=== PATIENT | female | born 1990 | race Caucasian/White ===

== ENCOUNTER 2022-04-01 09:11 | Outpatient (CLI) | payer OTHER | END 2022-04-01 09:56 | disposition home or self-care (01) | LOC: NST 09:11 | PROVIDERS: ATTEND Obstetrics & Gynecology | DX: Z34.83 Encounter for supervision of other normal pregnancy, third trimester (principal) ==

== ENCOUNTER 2022-05-01 15:00 | Inpatient (IN) | payer OTHER ==
[~2022-05-01] VITALS: Ht 154.9 cm; Wt 72.6 kg
[2022-05-31] MEDS ORDERED: PRENATAL TABLE1 EAC4 PO (22:47)
[2022-05-31] MEDS ORDERED: MELATONIN10 MG (22:47)
== END 2022-06-03 10:44 | disposition home or self-care (01) | DRG 807 ==
LOC: OB/GYN 05-30 15:00 → LDR 05-31 22:35 → OB/GYN 06-01 18:37
PROVIDERS: ADMIT Obstetrics & Gynecology; ATTEND Obstetrics & Gynecology
PROC: 10E0XZZ Delivery of Products of Conception, External Approach (ICD-10-PCS; principal; 2022-05-31)
PROC: 0HQ9XZZ Repair Perineum Skin, External Approach (ICD-10-PCS; 2022-05-31)
DX: O70.0 First degree perineal laceration during delivery (principal); Z37.0 Single live birth; Z3A.40 40 weeks gestation of pregnancy; Z20.822 Contact with and (suspected) exposure to COVID-19

== ENCOUNTER 2022-05-08 13:05 | Outpatient (CLI) | payer OTHER | END 2022-05-08 13:42 | disposition home or self-care (01) | LOC: NST 13:05 | PROVIDERS: ATTEND Obstetrics & Gynecology | DX: Z34.83 Encounter for supervision of other normal pregnancy, third trimester (principal) ==

== ENCOUNTER 2022-05-27 09:58 | Outpatient (CLI) | payer OTHER | END 2022-05-27 10:43 | disposition home or self-care (01) | LOC: NST 09:58 | PROVIDERS: ATTEND Obstetrics & Gynecology Maternal & Fetal Medicine | DX: Z34.83 Encounter for supervision of other normal pregnancy, third trimester (principal) ==

== ENCOUNTER → 2022-05-30 | Outpatient (CLI) | payer OTHER | END | disposition home or self-care (01) | LOC: NST 09:58 | PROVIDERS: ATTEND Obstetrics & Gynecology Maternal & Fetal Medicine | DX: Z34.83 Encounter for supervision of other normal pregnancy, third trimester (principal) ==

== ENCOUNTER 2024-03-08 12:33 | Outpatient (CLI) | payer OTHER ==
[~2024-03-08 12:33] MED LIST: MELATONIN10 MG; PRENATAL TABLE1 EAC4 PO
== END 2024-03-08 13:19 | disposition home or self-care (01) ==
LOC: NST 12:33
PROVIDERS: ATTEND Obstetrics & Gynecology
DX: Z34.83 Encounter for supervision of other normal pregnancy, third trimester (principal)

== ENCOUNTER 2024-03-18 13:19 | Inpatient (IN) | payer OTHER ==
[~2024-03-18] VITALS: Ht 154.9 cm; Wt 74.8 kg
[2024-04-11 11:43] VITALS: BP 142/92
[2024-04-11] MEDS ORDERED: MORPHINE SULFATE 4 MG/ML CARTRIDGE IV PRN (12:15)
[2024-04-11] MEDS ORDERED: OXYTOCIN 500 ML IV ONE (12:15)
[2024-04-11] MEDS ORDERED: RINGERS SOLUTION,LACTATED 1,000 ML IV SCH (12:15)
[2024-04-11] MEDS ORDERED: PEPCID AC20 MG PO (12:27)
[2024-04-11] MEDS ORDERED: PROZAC20 MG PO (12:28)
[2024-04-11 12:32] LABS: URINE APPEARANCE Cloudy; URINE BILIRRUBIN Negative (NEGATIVE); URINE BLOOD Large; URINE COLOR Orange; URINE GLUCOSE Negative (NEGATIVE); URINE KETONE 15 (NEGATIVE); URINE LEUKOCYTE Small; URINE NITRATE Negative; URINE PROTEIN 30 (NEGATIVE); URINE UROBILINOGEN 0.2 E.U./dl
[2024-04-11 12:35] LABS: URINE BACTERIA 953.4 uL (0.0-1933); URINE EPITHELIAL CELLS 48.4 uL (0.0-38.8); URINE WBC 55.2 uL (0.0-23.2)
[2024-04-11 12:49] LABS: HEMOGLOBIN 13.4 g/dL (12.0-15.00); MEAN CORPUSCULAR HEMOGLOBIN 31.6 pg (27.00-32.0); MEAN CORPUSCULAR HGB CONC 34.3 g/dl (32.0-36.0); PLATELET COUNT 297 K/uL (150-450); RED BLOOD COUNT 4.24 M/uL (4.00-6.00); RED CELL DISTRIBUTION WIDTH 13.8 % (11.5-14.5)
[2024-04-11 12:55] LABS: ALBUMIN 3.1 gm/dL (3.4-5.0); BILIRUBIN TOTAL 0.51 mg/dL (0.3-1.2); CALCIUM 9.1 mg/dL (8.5-10.1); CREATININE SERUM 0.47 mg/dL (0.55-1.02); GFR 153.56; GLOBULINA 3.3 G/DL (2.4-3.5); POTASSIUM 3.82 mEq/L (3.5-5.1); TOTAL PROTEIN 6.4 gm/dL (6.4-8.2)
[2024-04-11 13:07] LABS: INR < 0.93; PARTIAL THROMBOPLASTIN TIME 26.8 SECONDS (22.0-34.0)
[2024-04-11 13:30] LABS: URINE RBC > 10558.9 uL (0.0-20.8)
[2024-04-11 15:42] VITALS: BP 121/94
[2024-04-11] MEDS ORDERED: PROMETHAZINE HCL 25 MG/ML AMPUL IV PRN (16:15)
[2024-04-11 17:02] VITALS: BP 136/83
[2024-04-11 17:17] VITALS: BP 127/79
[2024-04-11] MEDS ORDERED: LIDOCAINE HCL 1% 10ML VIAL ONE (17:28)
[2024-04-11] MEDS ORDERED: OXYTOCIN 20 UNITS/1000ML RL PIGGYBAG IV ONE (17:28)
[2024-04-11] MEDS ORDERED: ERYTHROMYCIN BASE OPHT 1GM EACH TUBE OP ONE ×2 (17:28→18:45)
[2024-04-11] MEDS ORDERED: CHLORHEXIDINE GLUCONATE 120 ML BOTTLE TOP ONE ×2 (17:28→18:15)
[2024-04-11 17:34] VITALS: BP 117/75
[2024-04-11] MEDS ORDERED: OXYTOCIN 1,000 ML IV ONE (18:15)
[2024-04-11] MEDS ORDERED: IBUprofen 400 MG TABLET PO SCH (18:15)
[2024-04-11] MEDS ORDERED: LIDOCAINE HCL 1% 10ML VIAL IJ ONE (18:45)
[2024-04-11] MEDS ORDERED: DOCUSATE SODIUM 100MG CAP PO NR (19:30)
[2024-04-11] MEDS ORDERED: DOCUSATE SODIUM 100MG CAP PO ONE (20:00)
[2024-04-12 01:00] VITALS: BP 113/83
[2024-04-12 06:20] LABS: HEMATOCRIT 35.4 % (36.0-45.00); HEMOGLOBIN 12.3 g/dL (12.0-15.00); MEAN CELL VOLUME 91.9 fL (80.00-100.00); MEAN CORPUSCULAR HEMOGLOBIN 31.9 pg (27.00-32.0); MEAN CORPUSCULAR HGB CONC 34.7 g/dl (32.0-36.0); PLATELET COUNT 292 K/uL (150-450); RED BLOOD COUNT 3.85 M/uL (4.00-6.00); RED CELL DISTRIBUTION WIDTH 13.4 % (11.5-14.5)
[2024-04-12 08:15] VITALS: BP 122/87
[2024-04-12] MEDS ORDERED: DOCUSATE SODIUM 100MG CAP PO SCH (09:00)
[2024-04-12 12:54] LABS: PH,URINE 6.5 (5.0-8.0); URINE APPEARANCE Clear; URINE BILIRRUBIN Negative (NEGATIVE); URINE BLOOD Large; URINE COLOR Yellow; URINE GLUCOSE Negative (NEGATIVE); URINE KETONE Negative (NEGATIVE); URINE LEUKOCYTE Small; URINE NITRATE Negative; URINE PROTEIN Trace (NEGATIVE); URINE UROBILINOGEN 0.2 E.U./dl
[2024-04-12 12:55] LABS: URINE BACTERIA 337.7 uL (0.0-1933); URINE RBC 2010.4 uL (0.0-20.8); URINE WBC 68.1 uL (0.0-23.2)
[2024-04-12 13:03] LABS: URINE CAST 0.88 uL (0.0-1.40)
[2024-04-12 13:04] LABS: HEMATOCRIT 36.9 % (36.0-45.00); HEMOGLOBIN 12.6 g/dL (12.0-15.00); MEAN CELL VOLUME 93.1 fL (80.00-100.00); MEAN CORPUSCULAR HEMOGLOBIN 31.8 pg (27.00-32.0); MEAN CORPUSCULAR HGB CONC 34.1 g/dl (32.0-36.0); PLATELET COUNT 321 K/uL (150-450); RED BLOOD COUNT 3.96 M/uL (4.00-6.00); RED CELL DISTRIBUTION WIDTH 13.8 % (11.5-14.5)
[2024-04-12 14:27] LABS: ALBUMIN 2.8 gm/dL (3.4-5.0); BILIRUBIN TOTAL 0.56 mg/dL (0.3-1.2); CALCIUM 9.5 mg/dL (8.5-10.1); CREATININE SERUM 0.47 mg/dL (0.55-1.02); GFR 153.56; GLOBULINA 3.1 G/DL (2.4-3.5); POTASSIUM 4.73 mEq/L (3.5-5.1); TOTAL PROTEIN 5.9 gm/dL (6.4-8.2)
[2024-04-12 16:35] VITALS: BP 103/71
[2024-04-13 00:38] VITALS: BP 117/82
[2024-04-13 08:11] VITALS: BP 122/84
== END 2024-04-13 12:00 | disposition home or self-care (01) | DRG 807 ==
LOC: LDR 04-06 13:30 → OB/GYN 04-11 11:04 → LDR 04-11 11:26 → OB/GYN 04-11 20:58
PROVIDERS: Obstetrics & Gynecology Gynecology; ADMIT Obstetrics & Gynecology; ATTEND Obstetrics & Gynecology
PROC: 10E0XZZ Delivery of Products of Conception, External Approach (ICD-10-PCS; principal; 2024-04-11)
PROC: 0KQM0ZZ Repair Perineum Muscle, Open Approach (ICD-10-PCS; 2024-04-11)
PROC: 0UQMXZZ Repair Vulva, External Approach (ICD-10-PCS; 2024-04-11)
PROC: 4A1HXCZ Monitoring of Products of Conception, Cardiac Rate, External Approach (ICD-10-PCS; 2024-04-11)
DX: O70.1 Second degree perineal laceration during delivery (principal); Z37.0 Single live birth; O71.82 Other specified trauma to perineum and vulva; Z3A.40 40 weeks gestation of pregnancy

== ENCOUNTER 2024-04-08 10:56 | Outpatient (CLI) | payer OTHER | END 2024-04-08 11:25 | disposition home or self-care (01) | LOC: NST 10:56 | PROVIDERS: ATTEND Obstetrics & Gynecology | DX: Z34.83 Encounter for supervision of other normal pregnancy, third trimester (principal) ==